=== PATIENT | male | born 1970 | race Caucasian/White ===

== ENCOUNTER 2016-10-05 16:59 | Emergency (ER) | payer OTHER ==
[~2016-10-05] VITALS: Ht 185.4 cm; Wt 119.7 kg
[2016-10-05] MEDS ORDERED: BUPIVACAINE HCL 0.5% 10 ML VIAL SC ONE (20:00)
[2016-10-05] MEDS ORDERED: LIDOCAINE 2% MDV 20 ML VIAL SC ONE (20:00)
[2016-10-05] MEDS ORDERED: TYLE325T5 PO (21:36)
[2016-10-05 21:48] VITALS: BP 134/84
--- NOTE | 2016-10-06 06:58 | REP ---
RIGHT FINGERS, FOUR VIEWS: HISTORY: Dislocation. There is posterior and medial dislocation of the intermediate phalange of the fourth digit. A small fracture fragment is present adjacent to the head of the proximal phalange. IMPRESSION: Posteromedial dislocation of the intermediate phalange of the fourth digit. Unreviewed MTDD
--- NOTE | 2016-10-06 08:00 | REP ---
Right ring finger four views follow-up study: Comparison is the study performed earlier this same evening. The dislocation of the PIP articulation has been satisfactorily reduced. A few tiny calcific fragments are noted adjacent to the joint line compatible with small avulsions. Mineralization and joint space are otherwise unremarkable. Signed by Luis Fernandez MD 10/06/2016 07:52 A
== END 2016-10-05 21:49 | disposition home or self-care (01) ==
LOC: M ED 16:59
DX: S62.644A Nondisplaced fracture of proximal phalanx of right ring finger, initial encounter for closed fracture (principal); W19.XXXA Unspecified fall, initial encounter; Y92.9 Unspecified place or not applicable; Y93.01 Activity, walking, marching and hiking; Y99.9 Unspecified external cause status; Z96.652 Presence of left artificial knee joint; D75.9 Disease of blood and blood-forming organs, unspecified

== ENCOUNTER → 2020-07-06 | Outpatient (CLI) | payer OTHER ==
[~2020-07-06] MED LIST: ROSU10TA6 PO; TYLE325T5 PO; VITA1CAP25 PO; VITMTA PO
== END ==
LOC: M LABSMTC 10:40
PROVIDERS: ATTEND Anesthesiology
DX: Z01.812 Encounter for preprocedural laboratory examination (principal); Z20.822 Contact with and (suspected) exposure to COVID-19

== ENCOUNTER 2020-07-11 11:08 | Day surgery (SDC) | payer OTHER ==
[~2020-07-11] VITALS: Ht 182.9 cm; Wt 121.1 kg
[~2020-07-11 11:08] MED LIST changes: +NS 1,000 ML IV ONE
[2020-07-11] MEDS ORDERED: fentaNYL 100 MCG/2 ML INJECTION (J3010) As Ordered ONE (12:20)
[2020-07-11] MEDS ORDERED: propofoL 200 MG/20 ML VIAL As Ordered ONE ×2 (12:34→13:15)
[2020-07-11] MEDS ORDERED: LIDOCAINE 2% 100MG/5ML SDV (FOR ANES.) As Ordered ONE (12:34)
--- NOTE | 2020-07-11 13:18 | ROOR ---
Patient Name: Ronald Horner Procedure Date: 07/11/2020 12:16 PM Date of : 1970 Age: 49 Room: [facility] Gender: Male Note Status: Finalized Procedure: Upper GI endoscopy Indications: Iron deficiency anemia Providers: Ike Bird MD Referring MD: [facility], Admin. Requesting Provider: Medicines: Monitored Anesthesia Care Complications: No immediate complications. Procedure: Pre-Anesthesia Assessment: - Prior to the procedure, a History and Physical was performed, and patient medications and allergies were reviewed. The patient is competent. The risks and benefits of the procedure and the sedation options and risks were discussed with the patient. All questions were answered and informed consent was obtained. Patient identification and proposed procedure were verified by the physician, the nurse and the orthopedic physician in the procedure room. Mental Status Examination: alert and oriented. Airway Examination: normal oropharyngeal airway and neck mobility. Respiratory Examination: clear to auscultation. CV Examination: normal. Prophylactic Antibiotics: The patient does not require prophylactic antibiotics. Prior Anticoagulants: The patient has taken no previous anticoagulant or antiplatelet agents. ASA Grade Assessment: III - A patient with severe systemic disease. After reviewing the risks and benefits, the patient was deemed in satisfactory condition to undergo the procedure. The anesthesia plan was to use monitored anesthesia care (MAC). Immediately prior to administration of medications, the patient was re-assessed for adequacy to receive sedatives. The heart rate, respiratory rate, oxygen saturations, blood pressure, adequacy of pulmonary ventilation, and response to care were monitored throughout the procedure. The physical status of the patient was re-assessed after the procedure. The Endoscope was introduced through the mouth, and advanced to the second part of duodenum. The upper GI endoscopy was accomplished without difficulty. The patient tolerated the procedure well. Findings: LA Grade B (one or more mucosal breaks greater than 5 mm, not extending between the tops of two mucosal folds) esophagitis with no bleeding was found 36 to 38 cm from the incisors. Biopsies were taken with a cold forceps for histology. There were esophageal mucosal changes consistent with Flores's esophagus present in the upper third of the esophagus. The maximum longitudinal extent of these mucosal changes was 2 cm in length. A small hiatal hernia was present. The first portion of the duodenum and second portion of the duodenum were normal. Impression: - LA Grade B reflux esophagitis. Rule out Flores's esophagus. Biopsied. 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 - Small hiatal hernia. - Normal first portion of the duodenum and second portion of the duodenum. Recommendation: - Use Protonix (pantoprazole) 40 mg PO daily for 3 months. Procedure Code(s): --- Professional --- 69457, Esophagogastroduodenoscopy, flexible, transoral; with biopsy, single or multiple Diagnosis Code(s): --- Professional --- K21.0, Gastro-esophageal reflux disease with esophagitis K22.8, Other specified diseases of esophagus K44.9, Diaphragmatic hernia without obstruction or gangrene D50.9, Iron deficiency anemia, unspecified CPT copyright 2019 [employer]. All rights reserved. The codes documented in this report are preliminary and upon incubator operator review may be revised to meet current compliance requirements. Ike Bird MD Ike Bird MD 07/11/2020 1:18:12 PM Electronically signed by Ike Bird MD Number of Addenda: 0 Note Initiated On: 07/11/2020 12:16 PM Estimated Blood Loss: Estimated blood loss was minimal.
--- NOTE | 2020-07-11 13:23 | ROOR ---
Patient Name: Ronald Horner Procedure Date: 07/11/2020 12:16 PM Date of : 1970 Age: 49 Room: [facility] Gender: Male Note Status: Finalized Procedure: Colonoscopy Indications: Iron deficiency anemia Providers: Ike Bird MD Referring MD: [facility], Admin. Requesting Provider: Medicines: Monitored Anesthesia Care Complications: No immediate complications. Procedure: Pre-Anesthesia Assessment: - Prior to the procedure, a History and Physical was performed, and patient medications and allergies were reviewed. The patient is competent. The risks and benefits of the procedure and the sedation options and risks were discussed with the patient. All questions were answered and informed consent was obtained. Patient identification and proposed procedure were verified by the physician, the nurse and the slitting and shipping supervisor in the endoscopy suite. Mental Status Examination: alert and oriented. Airway Examination: normal oropharyngeal airway and neck mobility. Respiratory Examination: clear to auscultation. CV Examination: normal. Prophylactic Antibiotics: The patient does not require prophylactic antibiotics. Prior Anticoagulants: The patient has taken no previous anticoagulant or antiplatelet agents. ASA Grade Assessment: III - A patient with severe systemic disease. After reviewing the risks and benefits, the patient was deemed in satisfactory condition to undergo the procedure. The anesthesia plan was to use monitored anesthesia care (MAC). Immediately prior to administration of medications, the patient was re-assessed for adequacy to receive sedatives. The heart rate, respiratory rate, oxygen saturations, blood pressure, adequacy of pulmonary ventilation, and response to care were monitored throughout the procedure. The physical status of the patient was re-assessed after the procedure. The Colonoscope was introduced through the anus and advanced to the cecum, identified by appendiceal orifice and ileocecal valve. The colonoscopy was technically difficult and complex due to significant looping and the patient's body habitus. Successful completion of the procedure was aided by applying abdominal pressure. The patient tolerated the procedure well. The quality of the bowel preparation was good. Findings: The perianal and digital rectal examinations were normal. Nonbleeding ulcerated mucosa with no stigmata of recent bleeding were present in the cecum. Biopsies were taken with a cold forceps for histology. Estimated blood loss was minimal. A 5 mm polyp was found in the transverse colon. The polyp was sessile. The polyp was removed with a cold snare. Resection and retrieval were complete. Estimated blood loss was minimal. The retroflexed view of the distal rectum and anal verge was normal and showed no anal or rectal abnormalities. Impression: - Mucosal ulceration. Biopsied. - One 5 mm polyp in the transverse colon, removed with a cold snare. Resected and retrieved. - The distal rectum and anal verge are normal on retroflexion view. Recommendation: - Discharge patient to home (ambulatory). - Repeat colonoscopy in 5 years for surveillance. Procedure Code(s): --- Professional --- 87796, Colonoscopy, flexible; with removal of tumor(s), polyp(s), or other lesion(s) by snare technique 81130, 59, Colonoscopy, flexible; with biopsy, single or multiple Diagnosis Code(s): --- Professional --- K63.3, Ulcer of intestine K63.5, Polyp of colon D50.9, Iron deficiency anemia, unspecified CPT copyright 2019 [employer]. All rights reserved. The codes documented in this report are preliminary and upon automotive parts coordinator review may be revised to meet current compliance requirements. Ike Bird MD Ike Bird MD 07/11/2020 1:22:56 PM Electronically signed by Ike Bird MD Number of Addenda: 0 Note Initiated On: 07/11/2020 12:16 PM Estimated Blood Loss: Estimated blood loss was minimal.
[2020-07-11 13:40] VITALS: BP 142/76
== END 2020-07-11 13:49 | disposition home or self-care (01) ==
LOC: M OPP 11:08
PROVIDERS: ATTEND Surgery
DX: K63.3 Ulcer of intestine (principal); D12.6 Benign neoplasm of colon, unspecified; D50.9 Iron deficiency anemia, unspecified; K21.00 Gastro-esophageal reflux disease with esophagitis, without bleeding; K22.8 Other specified diseases of esophagus; K44.9 Diaphragmatic hernia without obstruction or gangrene; Z79.899 Other long term (current) drug therapy
CPT/HCPCS: 43239; 45380; 45385; 88305; J3010

== ENCOUNTER → 2020-10-26 | Outpatient (CLI) | payer OTHER ==
[~2020-10-26] MED LIST changes: -NS 1,000 ML IV ONE
--- NOTE | 2020-10-27 17:42 | REPVR ---
PROCEDURE INFORMATION: Exam: MR Cervical Spine Without Contrast Exam date and time: 10/26/2020 3:21 PM Age: 50 years old Clinical indication: Neck pain; Additional info: Chronic neck pain TECHNIQUE: Imaging protocol: Multiplanar magnetic resonance images of the cervical spine without contrast. COMPARISON: No relevant prior studies available. FINDINGS: Cervical vertebral body heights are intact. Slight straightening of the cervical lordosis. The dens is intact. No abnormal marrow signal. No cord compression, expansion, or abnormal cord signal. Visualized structures of the posterior fossa are unremarkable. Soft tissues are unremarkable. C2-C3: No significant canal or foraminal narrowing. C3-C4: Uncovertebral spurring causes severe left foraminal narrowing with compression of the exiting left C4 nerve root. Mild canal narrowing. C4-C5: Facet hypertrophy and uncovertebral spurring cause mild left and moderate right foraminal narrowing. No significant canal narrowing. C5-C6: Small central disc protrusion causing mild canal narrowing and indentation of the anterior thecal sac. Along with facet hypertrophy and uncovertebral spurring there is mild left and moderate right foraminal narrowing. C6-C7: Small central disc protrusion superimposed over broad-based disc bulge causing focal mild to moderate canal narrowing with indentation upon the anterior thecal sac. Along with uncovertebral spurring there is moderate right and moderate to severe left foraminal narrowing. C7-T1: Posterior disc protrusion and uncovertebral spur very cause mild canal narrowing. Mild left and moderate right foraminal narrowing. IMPRESSION: Multilevel advanced spondylotic changes of the cervical spine, including severe left foraminal narrowing at C3-C4 compressing the exiting left C4 nerve root, as detailed above. Electronically signed by: Arash Ovalle On 10/27/2020 17:41:43 PM
== END ==
LOC: M PLAIMG 13:47
PROVIDERS: ATTEND Internal Medicine
DX: M47.812 Spondylosis without myelopathy or radiculopathy, cervical region (principal); M54.2 Cervicalgia

== ENCOUNTER → 2021-04-15 | Outpatient (REF) | LOC: M LABSMTC 13:46 | PROVIDERS: ATTEND Pediatrics | DX: Z20.822 Contact with and (suspected) exposure to COVID-19 (principal) ==

== ENCOUNTER → 2023-01-30 | Outpatient (CLI) | payer OTHER | LOC: M PLAIMG 07:11 | PROVIDERS: ATTEND Internal Medicine | DX: M50.221 Other cervical disc displacement at C4-C5 level (principal); M50.222 Other cervical disc displacement at C5-C6 level; M50.21 Other cervical disc displacement, high cervical region; M50.23 Other cervical disc displacement, cervicothoracic region; M12.88 Other specific arthropathies, not elsewhere classified, other specified site ==